=== PATIENT | female | born 2000 ===

== ENCOUNTER 2022-06-15 19:41 | Emergency (ER) | payer SELFPAY ==
[2022-06-15 19:50] VITALS: BP 125/70; TEMP 97.7
[2022-06-15] MEDS ORDERED: CEPHALEXIN500 M1 PO (20:22)
[2022-06-15 20:32] VITALS: PULSE 90
== END 2022-06-15 20:32 | disposition home or self-care (01) ==
LOC: COL.ER 19:41
DX: L03.031 Cellulitis of right toe (principal); L60.0 Ingrowing nail; Z28.310 Unvaccinated for COVID-19